=== PATIENT | male | born 1985 | race Caucasian/White ===

== ENCOUNTER 2021-02-11 10:18 | Day surgery (SDC) | payer OTHER ==
[~2021-02-11 10:18] MED LIST: cefTRIAXone 2 GM VIAL ONE
[2021-02-11] MEDS ORDERED: ROPIVACAINE 0.5% PF 20 ML AMPULE ONE (10:20)
[2021-02-11] MEDS ORDERED: PROPOFOL 200 MG/20 ML VIAL IVP ONE (10:20)
[2021-02-11] MEDS ORDERED: LIDOCAINE-MPF 2% 5 ML VIAL ONE (10:20)
[2021-02-11] MEDS ORDERED: DEXAMETHASONE 10 MG/ML VIAL ONE (10:20)
[2021-02-11] MEDS ORDERED: EPINEPHrine 1 MG/ML AMP ONE ×2 (10:21→11:07)
[2021-02-11] MEDS ORDERED: MIDAZOLAM 2 MG/2 ML VIAL ONE (10:21)
[2021-02-11] MEDS ORDERED: fentaNYL 100 MCG/2 ML VIAL ONE (10:21)
[2021-02-11] MEDS ORDERED: KETOROLAC 30 MG/ML VIAL ONE (10:21)
[2021-02-11] MEDS ORDERED: ONDANSETRON 4 MG/2 ML VIAL ONE (10:21)
[2021-02-11] MEDS ORDERED: EPINEPHrine 1 MG/ML AMP IR ONE (10:30)
[2021-02-11] MEDS ORDERED: LACTATED RINGERS 1,000 ML IV ONE ×2 (10:53→14:30)
[2021-02-11] MEDS ORDERED: ROCURONIUM 50 MG/5 ML VIAL ONE (11:05)
[2021-02-11] MEDS ORDERED: fentaNYL 100 MCG/2 ML VIAL IVP PRN (11:07)
[2021-02-11] MEDS ORDERED: HYDROmorphone 0.5 MG/0.5 ML SYRINGE IVP PRN (11:07)
[2021-02-11] MEDS ORDERED: ONDANSETRON 4 MG/2 ML VIAL IVP PRN ×2 (11:07→14:40)
[2021-02-11] MEDS ORDERED: ePHEDrine 50 MG/ML VIAL IVP PRN (11:07)
[2021-02-11] MEDS ORDERED: MORPHINE 2 MG/ML CARPUJECT IVP PRN (11:07)
[2021-02-11] MEDS ORDERED: NALOXONE 0.4 MG/ML VIAL IVP PRN (11:07)
[2021-02-11] MEDS ORDERED: BUPIVACAINE 0.25% PF 30 ML VIAL ONE (11:07)
[2021-02-11] MEDS ORDERED: ATROPINE ABBOJECT 1 MG/10 ML SYRINGE IVP PRN (11:07)
[2021-02-11] MEDS ORDERED: METOCLOPRAMIDE 10 MG/2 ML VIAL IVP PRN (11:07)
--- NOTE | 2021-02-11 11:08 | ANESTHESIA ---
Pre-Anesthesia VS, & Labs - Diagnosis left shoulder posterior labral tear, HAGL Tear - Procedure left shoulder arthroscopy labral repair Vital Signs: Temp Pulse Resp BP Pulse Ox 36.7 C 72 16 135/82 H 98 02/11/21 10:49 02/11/21 10:49 02/11/21 10:49 02/11/21 10:49 02/11/21 10:49 Height: 6 ft Weight (kg): 88.45 kg Body Mass Index: 26.4 BMI Classification: Overweight - NPO >8 hours - Lab Results Lab results reviewed: Yes Home Medications and Allergies Home Medications: Ambulatory Orders No Known Home Medications 02/06/21 No Known Home Medications 02/06/21 Allergies/Adverse Reactions: Allergies Allergy/AdvReac Type Severity Reaction Status Date / Time No Known Drug Allergies Allergy Verified 02/06/21 12:13 Anes History & Medical History - Anesthetic History Anesthesia Complications: reports: No previous complications Family history of Anesthesia Complications: Denies Family history of Malignant Hyperthermia: Denies - Medical History Cardiovascular: reports: None Pulmonary: reports: None Gastrointestinal: reports: None Urinary: reports: None Musculoskeletal: reports: Other Endocrine/Autoimmune: reports: None Skin: reports: None Exam General: Alert, Oriented x3, Cooperative, No acute distress Dental: WNL Mouth Openin Fingerbreadth Neck Mobility: Normal Mallampati classification: I Respiratory: Lungs clear, Normal breath sounds, No respiratory distress, No accessory muscle use Cardiovascular: Regular rate, Normal S1, Normal S2, No murmurs Plan Anesthesia Type: General, Interscalene Block Regional Block: Per Surgeon's request for Post Op pain control Consent for Procedure(s) Verified and Reviewed: Yes Code Status: Attempt Resuscitation ASA classification: 1-Healthy patient Is this case an emergency?: No
[2021-02-11] MEDS ORDERED: LACTATED RINGERS 1,000 ML IV SCH (12:00)
[2021-02-11] MEDS ORDERED: oxyCODONE 5 MG TABLET PO PRN (14:40)
--- NOTE | 2021-02-11 15:02 | OPERATIVE REPORT ---
Operative Report - Other Other Information/Narrative: Date of Surgery: 11 February 2021 Pre-Op Diagnosis: Left shoulder instability with capsule avulsion from the humerus and labrum Procedure: Left shoulder arthroscopy with posterior labral repair, layered capsular repair and tightening to the posterior glenoid, and separate repair of the humeral avulsion of the glenoid ligament Postop Diagnosis: Same as above Primary Surgeon: Jairon Villanueva Secondary Surgeon: Michi Winters Complications: None EBL: 50 ml IMPLANTS: Arthrex knotless suture tack x6 POSTOPERATIVE PLAN: 0-2 weeks-Sling at all times. Pendulum exercises 5 times per day. 2-6 weeks-Passive range of motion with the following limits: FF to 90 with the palm up, ER to 30, abduction to 90 6-12 weeks-Active range of motion in all planes without limitation. Isometric rotator cuff strengthening is allowed 12-16 weeks-Gradually increase strengthening 16 weeks and beyond-Introduce dynamic activities EXAMINATION UNDER ANESTHESIA: ROM: With the shoulder relaxed dislocated posteriorly but after relocating it he had full range of motion Anterior load and shift: Stable Posterior load and shift: Grade 3 Inferior sulcus: Abnormal ARTHROSCOPIC FINDINGS: Rotator interval: Injected and inflamed Biceps tendon & SLAP: There is a small lipstick lesion but the tendon had no tears and the insertion was normal. The biceps rafita l had some fraying around it but the biceps was stable Subscapularis: A reverse Hill-Sachs lesion was seen but the subscapularis insertion was normal Rotator Cuff: Normal HAGL: An inferior humeral avulsion of the glenohumeral ligament was seen. It stopped at the insertion of the anterior inferior glenohumeral ligament anteriorly with a longitudinal split and stopped posteriorly at the level where the capsule had ripped off the glenoid. This represented a discontinuous capsular avulsion without longitudinal split to connect them Labrum: A posterior shearing labral tear was seen and the capsule had avulsed separately from the labrum posteriorly Glenoid Cartilage: A posterior glad lesion was present at the location of the labral tear. There was slight fraying of the central cartilage Humeral Head Cartilage: A reverse Hill-Sachs lesion was seen but the remainder of the humeral head cartilage was normal INDICATION FOR SURGERY: 36-year-old male who is right-hand dominant left shoulder affected. He fell onto his elbow while skiing the day before [place] and sustained a posterior shoulder dislocation. It was reduced in the emergency room. He developed significant dysfunction and began physical therapy just a few weeks ago. Work-up revealed significant capsular injuries and he was indicated for operative management to restore stability and normal anatomy. Nonoperative managment failed to resolve symptoms. The risks, benefits, and alternatives were discussed. Risks included pain, bleeding, infection, damage to nearby structures, lack of symptom relief, implant complications, stiffness, need for further surgeries, DVT, PE, stroke, and even . He signed a written consent form. PROCEDURE IN DETAIL: The patient was met in the preoperative holding on the day of the procedure. Operative extremity was signed. Consent was verified. He desired to proceed. Regional anesthesia was obtained in the preoperative area. They were brought to the operating room and surrendered to anesthesia. Once general anesthesia was obtained they were placed in the lateral decubitus position with the operative side up. An axillary roll was placed and all bony prominences were well-padded. They were then prepped and draped in the standard sterile fashion. A surgical timeout was held to confirm the patient procedure, identity, procedure, laterality, allergies, images, and antibiotics. All were in agreement we proceeded. Balanced suspension was applied and a standard diagnostic arthroscopy was performed utilizing posterior and anterior superior portal sites. The anterior superior portal site was created under direct visualization. The findings of the diagnostic arthroscopy can be found above. A mid glenoid portal was then created under direct visualization bordering the subscapularis tendon. I then used a combination of high and low angled elevators to develop the labral tear p osteriorly and release it from off the glenoid neck. I then used to the pineapple rasp to finalize my release and abraded the bone to a bleeding bed. A sucker shaver was placed in the interval to debride any loose tissue and further abrade the glenoid neck. Any loose cartilage was debrided at that time. I then performed a labral repair utilizing knotless suture tacks. Anchors were placed at 7:00 8:00 and 9:00. Knotless technique was used and the labrum was repaired adequately. It is at this point that it was apparent that the capsule had avulsed from the labrum and that the posterior cannula had entered through this interval. I then performed a capsular repair over the top of the labral repair utilizing anchors at 730 and 830. To do this, a new cannula position was placed more laterally through the capsule itself. Following the repair of the capsule down to the glenoid rim I then pulled the cannula out part way and closed the capsule side to side using a [employer]. With the capsule attached to the glenoid the posterior inferior glenohumeral ligament was well tensioned. I then attempted to visualize the inferior HAGL posteriorly but the capsule had tightened and I was unable to do so. I then placed my camera in the mid glenoid portal and externally rotated the arm. This exposed the inferior Hagel very nicely. I then assessed the shape and found that the inferior capsule could easily be reduced to the humeral neck. I then used a rasp to abrade the humeral neck just off of the cartilage. I did not use a shaver in this interval due to the risk of the axillary nerve. After I had abraded the humeral neck to a bed of bleeding bone I then placed a knotless suture tack just off the cartilage. A scorpion was then used to pass the suture through the tissue at the appropriate location and knotless technique was used to reduce the capsule back to the humeral neck. As expected, with the capsule reduced to the humeral neck, my visualization anteriorly became poor. I took my final images of the capsule reattached to the humerus and removed all traction. The humeral head was then found centered very nicely over the glenoid. Because the capsule had avulsed from the humerus there was significant fluid leak during the surgery and so I chose to close the portal sites with nylon suture. A sterile dressing and a sling was applied. He was awakened and trans ferred to the recovery room.
--- NOTE | 2021-02-11 15:04 | ANESTHESIA POST OP EVALUATION ---
Anesthesia Post Eval - Post Anesthesia Eval Vitals: Last Vital Signs Temp 36.2 C L 02/11/21 15:00 Pulse 86 02/11/21 15:00 Resp 14 02/11/21 15:00 BP 145/80 H 02/11/21 15:00 Pulse Ox 99 02/11/21 15:00 CV Function Including HR & BP: Stable Pain Control: Satisfactory Nausea & Vomiting: Negative Mental Status: Baseline Respiratory Status: Airway Patent Hydration Status: Satisfactory Anesthesia Complications: None
[2021-02-11 15:22] VITALS: BP 1473/83
--- OUTSIDE RECORDS SUMMARY | 2021-02-12 03:22 | EXTERNAL MEDICAL SUMMARY RPT | Continuity of Care Document ---
:1985 Demographics Phone Unavailable Preferred Language Amharic Marital Status Unknown [employer] Affiliation Unknown Race Unknown Ethnic Group Unknown Author Organization [facility] Address [address] [phone] Phone Social History date description facility [phone]
== END 2021-02-11 10:19 | disposition home or self-care (01) ==
LOC: SDS 10:18
PROVIDERS: ATTEND Orthopaedic Surgery
DX: S43.035A Inferior dislocation of left humerus, initial encounter (principal); S42.292A Other displaced fracture of upper end of left humerus, initial encounter for closed fracture; E66.3 Overweight; Z68.26 Body mass index [BMI] 26.0-26.9, adult; V00.321A Fall from snow-skis, initial encounter; Y93.23 Activity, snow (alpine) (downhill) skiing, snowboarding, sledding, tobogganing and snow tubing; Y92.828 Other wilderness area as the place of occurrence of the external cause; Y99.8 Other external cause status
CPT/HCPCS: 29806; C1713; J7120